=== PATIENT | male | born 1965 | race Two or more races ===

== ENCOUNTER 2020-07-03 05:40 | Day surgery (SDC) | payer OTHER ==
[2020-07-03] MEDS ORDERED: PEPCID AC20 MG PO (07:30)
== END 2020-07-03 09:15 | disposition home or self-care (01) ==
LOC: AMB-ENDOS 05:40
PROVIDERS: ATTEND Surgery
DX: K29.60 Other gastritis without bleeding (principal); K44.9 Diaphragmatic hernia without obstruction or gangrene; Z20.822 Contact with and (suspected) exposure to COVID-19